=== PATIENT | female | born 1975 | race Caucasian/White ===

== ENCOUNTER → 2017-01-14 | Outpatient (CLI) | payer OTHER ==
[~2017-01-14] MED LIST: KETOROLAC TROME10 MG PO; KLONOPIN 0.5MG0.5 MG PO; NATURAL IRON65 MG PO; VITAMIN D400 UNI1 PO
== END ==
LOC: RAD 13:56
DX: N92.0 Excessive and frequent menstruation with regular cycle (principal); E55.9 Vitamin D deficiency, unspecified; E04.2 Nontoxic multinodular goiter; R63.5 Abnormal weight gain

== ENCOUNTER → 2017-02-24 | Outpatient (CLI) | payer OTHER ==
[2016-05-27 10:04] VITALS: BP 111/64
== END ==
LOC: MAMMO 13:47
DX: Z12.31 Encounter for screening mammogram for malignant neoplasm of breast (principal)
CPT/HCPCS: G0202

== ENCOUNTER → 2017-06-16 | Outpatient (CLI) | payer OTHER ==
[2016-05-27 10:04] VITALS: BP 111/64
== END ==
LOC: RAD 10:28
DX: R59.0 Localized enlarged lymph nodes (principal); R51 Headache; M54.2 Cervicalgia

== ENCOUNTER → 2017-09-28 | Outpatient (CLI) | payer OTHER ==
[2016-05-27 10:04] VITALS: BP 111/64
[2017-09-29 01:08] LABS: T3 TOTAL 116 ng/dL (87-178)
== END ==
LOC: LAB 09:58
PROVIDERS: Nurse Practitioner Family
DX: F41.1 Generalized anxiety disorder (principal); R00.2 Palpitations

== ENCOUNTER → 2018-03-01 | Outpatient (CLI) | payer OTHER ==
[2016-05-27 10:04] VITALS: BP 111/64
[2018-03-01 11:57] LABS: EOS # 0.2 (0.04-0.40); EOS % 2.7 % (1.0-5.0); HEMATOCRIT 39.4 % (37.0-47.0); HEMOGLOBIN 12.6 g/dL (12.5-16.0); LYMPH# 2.4 (1.50-4.00); MEAN CELL VOLUME 79 fl (78-100); MEAN CORPUSCULAR HEMOGLOBIN 25 pg (27-31); MEAN CORPUSCULAR HGB CONC 32 g/dL (33-37); MEAN PLATELET VOLUME 11.2 fl (7.4-10.4); MONO # 0.5 (0.20-0.80); NEU # 5.1 (1.40-6.50); PLATELET COUNT 240 K/mm3 (130-400); RED BLOOD COUNT 4.97 M/mm3 (4.10-5.30); RED CELL DISTRIBUTION WIDTH 15.9 % (11.5-14.5); WHITE BLOOD COUNT 8.2 K/mm3 (4.8-10.8)
[2018-03-01 12:10] LABS: URINE APPEARANCE CLEAR; URINE BILIRUBIN NEGATIVE (NEGATIVE); URINE BLOOD NEGATIVE (NEGATIVE); URINE COLOR YELLOW; URINE GLUCOSE NEGATIVE (NEGATIVE); URINE KETONE NEGATIVE (NEGATIVE); URINE NITRATE NEGATIVE (NEGATIVE); URINE PROTEIN(semi-quant) NEGATIVE (NEGATIVE); URINE UROBILINOGEN NORMAL (NORMAL)
[2018-03-01 12:11] LABS: ALBUMIN 4.4 g/dL (3.5-5.0); BUN/CREATININE RATIO 8.9 (6.0-26.0); CALCIUM 9.3 mg/dL (8.4-10.2); POTASSIUM 3.9 mmol/L (3.6-5.0); TOTAL BILIRUBIN 0.6 mg/dL (0.2-1.3); TOTAL PROTEIN 8.5 g/dL (6.3-8.2); URINE LEUKOCYTE ESTERASE TRACE (NEGATIVE)
== END ==
LOC: LAB 11:40
PROVIDERS: Family Medicine
DX: Z01.419 Encounter for gynecological examination (general) (routine) without abnormal findings (principal); E04.2 Nontoxic multinodular goiter

== ENCOUNTER → 2018-03-09 | Outpatient (CLI) | payer OTHER ==
[2016-05-27 10:04] VITALS: BP 111/64
== END ==
LOC: RAD 13:27
DX: M79.675 Pain in left toe(s) (principal)

== ENCOUNTER → 2018-08-22 | Outpatient (CLI) | payer OTHER ==
[2016-05-27 10:04] VITALS: BP 111/64
== END ==
LOC: RAD 08:09
DX: G40.409 Other generalized epilepsy and epileptic syndromes, not intractable, without status epilepticus (principal); G43.909 Migraine, unspecified, not intractable, without status migrainosus
CPT/HCPCS: Q9967

== ENCOUNTER → 2019-07-26 | Outpatient (CLI) | payer OTHER ==
[2016-05-27 10:04] VITALS: BP 111/64
== END ==
LOC: RAD 11:00
DX: E04.2 Nontoxic multinodular goiter (principal); R22.1 Localized swelling, mass and lump, neck
CPT/HCPCS: Q9967

== ENCOUNTER → 2019-12-13 | Outpatient (CLI) | payer OTHER ==
[2016-05-27 10:04] VITALS: BP 111/64
== END ==
LOC: MAMMO 11:30
DX: Z12.31 Encounter for screening mammogram for malignant neoplasm of breast (principal)

== ENCOUNTER → 2020-03-25 | Outpatient (CLI) | payer OTHER ==
[2016-05-27 10:04] VITALS: BP 111/64
== END ==
LOC: LAB 12:01
DX: Z20.828 Contact with and (suspected) exposure to other viral communicable diseases (principal)

== ENCOUNTER → 2020-04-08 | Outpatient (CLI) | payer OTHER ==
[2016-05-27 10:04] VITALS: BP 111/64
[2020-04-08 16:31] LABS: EOS # 0.2 (0.04-0.40); EOS % 2.6 % (1.0-5.0); HEMATOCRIT 34.1 % (37.0-47.0); HEMOGLOBIN 10.4 g/dL (12.5-16.0); LYMPH# 2.4 (1.50-4.00); MEAN CELL VOLUME 74 fl (78-100); MEAN CORPUSCULAR HGB CONC 31 g/dL (33-37); MEAN PLATELET VOLUME 10.4 fl (7.4-10.4); MONO # 0.4 (0.20-0.80); NEU # 4.8 (1.40-6.50); PLATELET COUNT 232 K/mm3 (130-400); RED BLOOD COUNT 4.64 M/mm3 (4.10-5.30); RED CELL DISTRIBUTION WIDTH 15.7 % (11.5-14.5); WHITE BLOOD COUNT 7.8 K/mm3 (4.8-10.8)
[2020-04-08 16:32] LABS: MEAN CORPUSCULAR HEMOGLOBIN 22 pg (27-31)
[2020-04-08 16:40] LABS: ALBUMIN 3.9 g/dL (3.5-5.0); POTASSIUM 3.8 mmol/L (3.5-5.1)
[2020-04-08 16:41] LABS: CALCIUM 8.6 mg/dL (8.3-10.5)
[2020-04-08 16:42] LABS: TOTAL PROTEIN 6.9 g/dL (6.4-8.3)
[2020-04-08 16:44] LABS: TOTAL BILIRUBIN 0.2 mg/dL (0.2-1.2)
[2020-04-08 17:30] LABS: ERYTHROCYTE SEDIMENTATION RATE 55 mm/hr (0-20)
== END ==
LOC: LAB 16:22
PROVIDERS: Family Medicine
DX: E04.2 Nontoxic multinodular goiter (principal); M79.10 Myalgia, unspecified site; G43.109 Migraine with aura, not intractable, without status migrainosus; N94.6 Dysmenorrhea, unspecified

== ENCOUNTER → 2020-04-17 | Outpatient (CLI) | payer OTHER ==
[2016-05-27 10:04] VITALS: BP 111/64
== END ==
LOC: LAB 13:50
DX: E78.5 Hyperlipidemia, unspecified (principal); G43.909 Migraine, unspecified, not intractable, without status migrainosus; R70.0 Elevated erythrocyte sedimentation rate

== ENCOUNTER → 2021-01-29 | Outpatient (CLI) | payer OTHER ==
[2016-05-27 10:04] VITALS: BP 111/64
[2021-01-29 15:59] LABS: EOS # 0.2 (0.04-0.40); EOS % 2.9 % (1.0-5.0); HEMATOCRIT 38.6 % (37.0-47.0); HEMOGLOBIN 12.2 g/dL (12.5-16.0); LYMPH# 2.1 (1.50-4.00); MEAN CELL VOLUME 77 fl (78-100); MEAN CORPUSCULAR HGB CONC 32 g/dL (33-37); MONO # 0.4 (0.20-0.80); NEU # 4.9 (1.40-6.50); PLATELET COUNT 200 K/mm3 (130-400); RED BLOOD COUNT 5.01 M/mm3 (4.10-5.30); RED CELL DISTRIBUTION WIDTH 15.5 % (11.5-14.5); WHITE BLOOD COUNT 7.7 K/mm3 (4.8-10.8)
[2021-01-29 16:07] LABS: MEAN CORPUSCULAR HEMOGLOBIN 24 pg (27-31)
[2021-01-29 16:13] LABS: ALBUMIN 4.1 g/dL (3.5-5.0); POTASSIUM 3.8 mmol/L (3.5-5.1)
[2021-01-29 16:14] LABS: CALCIUM 9.2 mg/dL (8.3-10.5)
[2021-01-29 16:16] LABS: TOTAL PROTEIN 7.1 g/dL (6.4-8.3)
[2021-01-29 16:17] LABS: TOTAL BILIRUBIN 0.4 mg/dL (0.2-1.2)
== END ==
LOC: LAB 15:27
PROVIDERS: Family Medicine
DX: Z00.00 Encounter for general adult medical examination without abnormal findings (principal); E04.2 Nontoxic multinodular goiter; E78.5 Hyperlipidemia, unspecified; E03.9 Hypothyroidism, unspecified

== ENCOUNTER → 2021-03-07 | Outpatient (CLI) | payer OTHER ==
[2016-05-27 10:04] VITALS: BP 111/64
== END ==
LOC: CARDREHAB 07:49
DX: R07.9 Chest pain, unspecified (principal)
CPT/HCPCS: A9500

== ENCOUNTER → 2021-03-07 | Outpatient (CLI) | payer OTHER ==
[2016-05-27 10:04] VITALS: BP 111/64
== END ==
LOC: RAD 11:41
DX: J43.9 Emphysema, unspecified (principal); I25.10 Atherosclerotic heart disease of native coronary artery without angina pectoris; Z72.0 Tobacco use

== ENCOUNTER → 2022-03-18 | Outpatient (CLI) | payer OTHER ==
[2022-03-18 10:46] LABS: ALBUMIN 4.2 g/dL (3.5-5.0); POTASSIUM 3.9 mmol/L (3.5-5.1)
[2022-03-18 10:47] LABS: BASO # 0.03 K/mm3 (0.02-0.10); CALCIUM 9.8 mg/dL (8.3-10.5); EOS # 0.24 K/mm3 (0.04-0.40); EOS % 4.1 % (1.0-5.0); HEMATOCRIT 40.8 % (37.0-47.0); MEAN CELL VOLUME 78 fl (78-100); MEAN CORPUSCULAR HEMOGLOBIN 25 pg (27-31); MEAN CORPUSCULAR HGB CONC 32 g/dL (33-37); MEAN PLATELET VOLUME 11.3 fl (7.4-10.4); MONO # 0.26 K/mm3 (0.20-0.80); RED BLOOD COUNT 5.25 M/mm3 (4.10-5.30); RED CELL DISTRIBUTION WIDTH 15.2 % (11.5-14.5); WHITE BLOOD COUNT 5.8 K/mm3 (4.8-10.8)
[2022-03-18 10:49] LABS: TOTAL PROTEIN 7.3 g/dL (6.4-8.3)
[2022-03-18 10:50] LABS: TOTAL BILIRUBIN 0.3 mg/dL (0.2-1.2)
[2022-03-18 11:11] LABS: PLATELET COUNT 171 K/mm3 (130-400)
[2022-03-19 02:51] LABS: FOLLICLE STIMULATING HORMONE 31.3 mIU/mL (()); LUTENIZING HORMONE 19.6 mIU/mL (()); PROGESTERONE 0.1 ng/mL (())
== END ==
LOC: MAMMO 07:30 → LAB 07:35 → MAMMO 07:35
PROVIDERS: Family Medicine
DX: Z12.31 Encounter for screening mammogram for malignant neoplasm of breast (principal); Z00.00 Encounter for general adult medical examination without abnormal findings; E78.5 Hyperlipidemia, unspecified; J30.9 Allergic rhinitis, unspecified; F41.9 Anxiety disorder, unspecified; G43.109 Migraine with aura, not intractable, without status migrainosus; E04.2 Nontoxic multinodular goiter; E66.9 Obesity, unspecified; E55.9 Vitamin D deficiency, unspecified; E03.9 Hypothyroidism, unspecified; N91.1 Secondary amenorrhea; Z72.0 Tobacco use

== ENCOUNTER → 2022-05-15 | Outpatient (CLI) | payer OTHER | LOC: RAD 08:45 | DX: K76.0 Fatty (change of) liver, not elsewhere classified (principal); I70.0 Atherosclerosis of aorta; I10 Essential (primary) hypertension | CPT/HCPCS: Q9967 ==

== ENCOUNTER → 2023-08-07 | Outpatient (CLI) | payer OTHER ==
[2023-08-07 18:50] LABS: CALCIUM 9.2 mg/dL (8.3-10.5)
== END ==
LOC: RAD 17:14 → LAB 17:14
PROVIDERS: Nurse Practitioner Family
DX: Z20.822 Contact with and (suspected) exposure to COVID-19 (principal)

== ENCOUNTER → 2023-09-22 | Outpatient (CLI) | payer OTHER | LOC: VAS 07:20 → RAD 07:20 | DX: R06.00 Dyspnea, unspecified (principal) ==

== ENCOUNTER → 2023-11-01 | Outpatient (CLI) | payer OTHER ==
[2023-11-01 15:09] LABS: CALCIUM 10.6 mg/dL (8.3-10.5)
== END ==
LOC: LAB 14:44
PROVIDERS: Physician Assistant
DX: I50.22 Chronic systolic (congestive) heart failure (principal); I42.8 Other cardiomyopathies

== ENCOUNTER → 2023-12-01 | Outpatient (CLI) | payer OTHER | LOC: RAD 08:39 | DX: E04.2 Nontoxic multinodular goiter (principal) ==

== ENCOUNTER → 2023-12-06 | Outpatient (CLI) | payer OTHER | LOC: RAD 07:44 | DX: E04.1 Nontoxic single thyroid nodule (principal) ==

== ENCOUNTER → 2024-01-05 | Outpatient (CLI) | payer OTHER ==
[2024-01-05 15:31] LABS: URINE APPEARANCE CLEAR (CLEAR); URINE COLOR YELLOW (YELLOW)
[2024-01-05 15:32] LABS: URINE BILIRUBIN NEGATIVE (NEGATIVE); URINE BLOOD NEGATIVE (NEGATIVE); URINE GLUCOSE 2+ (NEGATIVE); URINE KETONE NEGATIVE (NEGATIVE); URINE LEUKOCYTE ESTERASE NEGATIVE (NEGATIVE); URINE NITRATE NEGATIVE (NEGATIVE); URINE PROTEIN(semi-quant) NEGATIVE (NEGATIVE)
== END ==
LOC: LAB 15:10
PROVIDERS: Nurse Practitioner
DX: R30.0 Dysuria (principal)

== ENCOUNTER → 2024-03-09 | Outpatient (CLI) | payer OTHER | LOC: RAD 15:00 | DX: Z12.39 Encounter for other screening for malignant neoplasm of breast (principal); M79.671 Pain in right foot; M79.672 Pain in left foot ==

== ENCOUNTER → 2024-05-01 | Outpatient (CLI) | payer OTHER | LOC: RAD 12:53 | DX: K76.0 Fatty (change of) liver, not elsewhere classified (principal); J98.4 Other disorders of lung; Z95.0 Presence of cardiac pacemaker ==

== ENCOUNTER → 2024-06-27 | Outpatient (CLI) | payer OTHER ==
[2024-06-27 17:08] LABS: BASO # 0.01 K/mm3 (0.02-0.10); EOS # 0.26 K/mm3 (0.04-0.40); HEMATOCRIT 41.7 % (37.0-47.0); HEMOGLOBIN 13.9 g/dL (12.5-16.0); MEAN CELL VOLUME 82 fl (78-100); MEAN CORPUSCULAR HEMOGLOBIN 27 pg (27-31); MEAN CORPUSCULAR HGB CONC 33 g/dL (33-37); MEAN PLATELET VOLUME 11.3 fl (7.4-10.4); MONO # 0.37 K/mm3 (0.20-0.80); NEU # 5.61 K/mm3 (1.40-6.50); PLATELET COUNT 170 K/mm3 (130-400); RED BLOOD COUNT 5.09 M/mm3 (4.10-5.30); WHITE BLOOD COUNT 8.7 K/mm3 (4.8-10.8)
[2024-06-27 17:13] LABS: ALBUMIN 4.5 g/dL (3.5-5.0)
[2024-06-27 17:15] LABS: CALCIUM 10.7 mg/dL (8.3-10.5)
[2024-06-27 17:16] LABS: TOTAL PROTEIN 7.6 g/dL (6.4-8.3)
[2024-06-27 17:18] LABS: TOTAL BILIRUBIN 0.9 mg/dL (0.2-1.2)
[2024-06-27 17:22] LABS: MAGNESIUM 1.73 mg/dL (1.60-2.60)
[2024-06-28 00:32] LABS: T3 FREE 3.1 pg/mL (1.7-3.7)
== END ==
LOC: LAB 16:52
PROVIDERS: Internal Medicine
DX: E11.9 Type 2 diabetes mellitus without complications (principal); I50.9 Heart failure, unspecified; R89.1 Abnormal level of hormones in specimens from other organs, systems and tissues

== ENCOUNTER → 2024-09-13 | Outpatient (CLI) | payer OTHER ==
[2024-09-13 09:31] LABS: PH-URINE 5.5 (5.0 - 8.0); URINE APPEARANCE CLEAR (CLEAR); URINE BILIRUBIN NEGATIVE (NEGATIVE); URINE BLOOD NEGATIVE (NEGATIVE); URINE COLOR YELLOW (YELLOW); URINE GLUCOSE 2+ (NEGATIVE); URINE KETONE NEGATIVE (NEGATIVE); URINE LEUKOCYTE ESTERASE NEGATIVE (NEGATIVE); URINE NITRATE NEGATIVE (NEGATIVE); URINE PROTEIN(semi-quant) NEGATIVE (NEGATIVE); URINE WBC 0-1 /hpf (0-3)
== END ==
LOC: LAB 08:50
PROVIDERS: Internal Medicine
DX: N39.0 Urinary tract infection, site not specified (principal)

== ENCOUNTER → 2024-09-14 | Outpatient (CLI) | payer OTHER | LOC: MAMMO 08:55 | DX: Z12.31 Encounter for screening mammogram for malignant neoplasm of breast (principal) ==

== ENCOUNTER → 2024-09-27 | Outpatient (CLI) | payer OTHER ==
[2024-09-27 08:33] LABS: ALBUMIN 4.6 g/dL (3.5-5.0)
[2024-09-27 08:34] LABS: CALCIUM 10.9 mg/dL (8.3-10.5)
[2024-09-27 08:36] LABS: TOTAL PROTEIN 7.5 g/dL (6.4-8.3)
[2024-09-27 08:37] LABS: TOTAL BILIRUBIN 0.9 mg/dL (0.2-1.2)
== END ==
LOC: LAB 07:59
PROVIDERS: Internal Medicine
DX: K90.9 Intestinal malabsorption, unspecified (principal); E78.5 Hyperlipidemia, unspecified